=== PATIENT | female | born 1995 | race Caucasian/White ===

== ENCOUNTER 2019-08-24 04:42 | Emergency (ER) | payer MEDICAID ==
[~2019-08-24] VITALS: Ht 162.6 cm; Wt 56.7 kg
[2019-08-24 05:04] VITALS: BP_SYST 134
[2019-08-24 07:51] VITALS: BP_SYST 108
== END 2019-08-24 07:48 | disposition home or self-care (01) ==
LOC: SED 04:42
DX: S29.012A Strain of muscle and tendon of back wall of thorax, initial encounter (principal); X50.0XXA Overexertion from strenuous movement or load, initial encounter; Y93.89 Activity, other specified; Y92.89 Other specified places as the place of occurrence of the external cause; Y99.8 Other external cause status
CPT/HCPCS: 71045; 99283